=== PATIENT | female | born 1935 | race Asian ===

== ENCOUNTER 2021-04-03 23:07 | Inpatient (IN) | payer BC, SELFPAY ==
[~2021-04-03] VITALS: Ht 162.6 cm; Wt 50.8 kg
[2021-04-03 23:13] VITALS: BP_SYST 157
[2021-04-04] VITALS (7 sets, daily range): BP systolic 118–160
[2021-04-04 00:17] LABS: BASOPHILS % (AUTO) 0.4 % (0.0-2.0); EOSINOPHILS % (AUTO) 0.6 % (0.0-4.0); HEMATOCRIT 32.7 % (36-48); HEMOGLOBIN 11.1 g/dL (12.0-16.0); LYMPHOCYTES # (AUTO) 0.8 K/uL (1.0-5.5); LYMPHOCYTES % (AUTO) 10.4 % (20.5-51.5); MEAN CORPUSCULAR HEMOGLOBIN 31 pg (27-31); MEAN CORPUSCULAR HGB CONC 34 % (32-36); MEAN CORPUSCULAR VOLUME 91 fL (79.0-98.0); MONOCYTES # (AUTO) 0.5 K/uL (0.0-1.0); NEUTROPHILS # (AUTO) 6.3 K/uL (1.8-7.7); NEUTROPHILS % (AUTO) 82.6 % (40.0-70.0); PLATELET COUNT (AUTO) 268 K/uL (130-430); RED BLOOD CELL COUNT(AUTO) 3.58 MIL/uL (4.2-6.2); RED CELL DISTRIBUTION WIDTH 15.7 % (9.0-15.0); WHITE BLOOD COUNT (AUTO) 7.7 K/uL (4.8-10.8)
[2021-04-04 00:32] LABS: ANION GAP 7 (5-15); CALCIUM 8.2 mg/dL (8.4-11.0); CHLORIDE 87 mmol/L (98-107); CREATININE 0.86 mg/dL (0.55-1.30); GLUCOSE 163 mg/dL (70-99); POTASSIUM 4.3 mmol/L (3.5-5.1); SODIUM SERUM 123 mmol/L (136-145); UREA NITROGEN, BLOOD 19 mg/dL (8-21)
[2021-04-04 00:38] LABS: ALANINE AMINOTRANSFERASE 24 U/L (12-78); ASPARTATE AMINOTRANSFERASE 19 U/L (10-37); LIPASE 138 U/L (73-393); TOTAL BILIRUBIN 0.6 mg/dL (0.0-1.0)
[2021-04-04] MEDS ORDERED: NS 500 ML IV ONE (00:45)
[2021-04-04] MEDS ORDERED: ONDANSETRON HCL 4 MG/2 ML VIAL IVP ONE (00:45)
[2021-04-04] MEDS ORDERED: OXYC10TA56 PO (00:46)
[2021-04-04] MEDS ORDERED: HYDR12.55 PO (00:46)
[2021-04-04] MEDS ORDERED: FER300L PO (00:46)
[2021-04-04] MEDS ORDERED: ALLO300T2 PO (00:46)
[2021-04-04] MEDS ORDERED: NAPR-690 PO (00:46)
[2021-04-04] MEDS ORDERED: METF-518 PO (00:46)
[2021-04-04] MEDS ORDERED: ACET325T PO (00:46)
[2021-04-04] MEDS ORDERED: CLON-315 PO (00:46)
[2021-04-04] MEDS ORDERED: SIMV40TA2 PO (00:46)
[2021-04-04] MEDS ORDERED: SSREG SUBCUT (00:46)
[2021-04-04] MEDS ORDERED: FAMO20TA8 PO (00:46)
[2021-04-04] MEDS ORDERED: CLOP75TA32 PO (00:46)
[2021-04-04] MEDS ORDERED: DOCU-144 PO (00:46)
[2021-04-04] MEDS ORDERED: BISA-79 RC (00:46)
[2021-04-04] MEDS ORDERED: ONDA4TAB5 PO (00:46)
[2021-04-04] MEDS ORDERED: DIGO125T PO (00:46)
[2021-04-04] MEDS ORDERED: ISOS60TA71 PO (00:46)
[2021-04-04] MEDS ORDERED: FAMOTIDINE PF 20 MG/2 ML VIAL IVP ONE (03:45)
[2021-04-04 06:54] LABS: BASOPHILS # (AUTO) 0.1 K/uL (0.0-0.2); EOSINOPHILS # (AUTO) 0.1 K/uL (0.0-0.4); EOSINOPHILS % (AUTO) 1.7 % (0.0-4.0); HEMOGLOBIN 11.5 g/dL (12.0-16.0); LYMPHOCYTES # (AUTO) 1.1 K/uL (1.0-5.5); LYMPHOCYTES % (AUTO) 17.7 % (20.5-51.5); MEAN CORPUSCULAR HEMOGLOBIN 31 pg (27-31); MEAN CORPUSCULAR HGB CONC 34 % (32-36); MEAN CORPUSCULAR VOLUME 91 fL (79.0-98.0); MONOCYTES # (AUTO) 0.7 K/uL (0.0-1.0); MONOCYTES % (AUTO) 11.1 % (1.7-9.3); NEUTROPHILS # (AUTO) 4.4 K/uL (1.8-7.7); NEUTROPHILS % (AUTO) 68.5 % (40.0-70.0); PLATELET COUNT (AUTO) 252 K/uL (130-430); RED BLOOD CELL COUNT(AUTO) 3.73 MIL/uL (4.2-6.2); RED CELL DISTRIBUTION WIDTH 15.9 % (9.0-15.0); WHITE BLOOD COUNT (AUTO) 6.4 K/uL (4.8-10.8)
[2021-04-04] MEDS ORDERED: NACL 0.9% 1,000 ML IV SCH (07:00)
[2021-04-04] MEDS ORDERED: MORPHINE 2 MG/ML INJ. SYRINGE IVP PRN ×2 (07:00)
[2021-04-04 07:14] LABS: ANION GAP 6 (5-15); CALCIUM 8.8 mg/dL (8.4-11.0); CHLORIDE 93 mmol/L (98-107); CREATININE 0.69 mg/dL (0.55-1.30); GLUCOSE 108 mg/dL (70-99); SODIUM SERUM 128 mmol/L (136-145); UREA NITROGEN, BLOOD 18 mg/dL (8-21)
[2021-04-04 07:28] LABS: ALANINE AMINOTRANSFERASE 22 U/L (12-78); ASPARTATE AMINOTRANSFERASE 21 U/L (10-37); THYROID STIMULATING HORMONE 7.92 uIu/mL (0.36-3.74); TOTAL BILIRUBIN 0.7 mg/dL (0.0-1.0)
[2021-04-04 08:20] LABS: CHOLESTEROL 174 mg/dL (<200); HDL CHOLESTEROL 56 mg/dL (>55); LDL CHOLESTEROL 104 mg/dL (<100); TRIGLYCERIDES 152 mg/dL (30-150)
[2021-04-04] MEDS ORDERED: PANTOPRAZOLE SODIUM 40 MG/VIAL (PROTONIX) IVP ONE (10:45)
[2021-04-04] MEDS: NACL 0.9% 1,000 ML IV SCH ×3 (11:30→19:30)
[2021-04-04] MEDS: ONDANSETRON HCL 4 MG/2 ML VIAL IVP PRN ×2 (14:16→19:24)
[2021-04-04] MEDS ORDERED: BISACODYL 5 MG TABLET.DR (DULCOLAX) PO ONE (17:00)
[2021-04-04] MEDS ORDERED: GOLYTELY / COLYTE SOLUTION 4 LITERS PO ONE (18:00)
[2021-04-04] MEDS ORDERED: MAGNESIUM CITRATE 300 ML ORAL SOLUTION PO ONE (19:00)
[2021-04-05 01:24] VITALS: BP_SYST 156
[2021-04-05] MEDS: NACL 0.9% 1,000 ML IV SCH ×3 (05:51→21:29)
[2021-04-05 06:33] LABS: BASOPHILS % (AUTO) 0.8 % (0.0-2.0); EOSINOPHILS # (AUTO) 0.1 K/uL (0.0-0.4); EOSINOPHILS % (AUTO) 2.1 % (0.0-4.0); HEMATOCRIT 33.9 % (36-48); HEMOGLOBIN 11.3 g/dL (12.0-16.0); LYMPHOCYTES # (AUTO) 1.1 K/uL (1.0-5.5); LYMPHOCYTES % (AUTO) 20.5 % (20.5-51.5); MEAN CORPUSCULAR HEMOGLOBIN 31 pg (27-31); MEAN CORPUSCULAR HGB CONC 33 % (32-36); MEAN CORPUSCULAR VOLUME 92 fL (79.0-98.0); MONOCYTES # (AUTO) 0.7 K/uL (0.0-1.0); MONOCYTES % (AUTO) 12.2 % (1.7-9.3); NEUTROPHILS # (AUTO) 3.5 K/uL (1.8-7.7); NEUTROPHILS % (AUTO) 64.4 % (40.0-70.0); PLATELET COUNT (AUTO) 243 K/uL (130-430); RED BLOOD CELL COUNT(AUTO) 3.68 MIL/uL (4.2-6.2); RED CELL DISTRIBUTION WIDTH 16.3 % (9.0-15.0); WHITE BLOOD COUNT (AUTO) 5.5 K/uL (4.8-10.8)
[2021-04-05 06:40] LABS: ANION GAP 6 (5-15); CALCIUM 8.3 mg/dL (8.4-11.0); CHLORIDE 99 mmol/L (98-107); CREATININE 0.64 mg/dL (0.55-1.30); GLUCOSE 104 mg/dL (70-99); PHOSPHORUS 3.6 mg/dL (2.7-4.5); POTASSIUM 3.7 mmol/L (3.5-5.1); SODIUM SERUM 132 mmol/L (136-145); UREA NITROGEN, BLOOD 14 mg/dL (8-21)
[2021-04-05 07:40] LABS: PROTHROMBIN TIME 10.2 SECS (9.5-12.5)
[2021-04-05 08:23] VITALS: BP_SYST 147
[2021-04-05] MEDS: PANTOPRAZOLE SODIUM 40 MG/VIAL (PROTONIX) IVP SCH (08:46)
[2021-04-05 09:49] LABS: URIC ACID 3.1 mg/dL (2.4-7.0)
[2021-04-05] MEDS: MIDAZOLAM HCL 5 MG/5 ML VIAL ONE ×4 (10:05→10:21)
[2021-04-05] MEDS: MEPERIDINE 100 MG INJ. 100 MG/ML VIAL ONE ×3 (10:05→10:19)
[2021-04-05 12:44] VITALS: BP_SYST 129
[2021-04-05 16:00] VITALS: BP_SYST 139
[2021-04-05] MEDS ORDERED: ACETAMINOPHEN 325 MG TABLET PO PRN (17:00)
[2021-04-05 20:45] VITALS: BP_SYST 135
[2021-04-05] MEDS ORDERED: SIMVASTATIN 40 MG TABLET PO SCH (21:00)
[2021-04-05] MEDS: DOCUSATE SODIUM 100 MG CAPSULE PO SCH (21:16)
[2021-04-05] MEDS: FAMOTIDINE 20 MG TABLET PO SCH (21:16)
[2021-04-05] MEDS: HYDROCHLOROTHIAZIDE 12.5 MG CAPSULE (HCTZ) PO SCH (21:20)
[2021-04-06 01:48] VITALS: BP_SYST 143
[2021-04-06] MEDS: NACL 0.9% 1,000 ML IV SCH (03:30)
[2021-04-06 06:21] LABS: BASOPHILS % (AUTO) 0.8 % (0.0-2.0); EOSINOPHILS # (AUTO) 0.1 K/uL (0.0-0.4); EOSINOPHILS % (AUTO) 2.8 % (0.0-4.0); HEMOGLOBIN 10.5 g/dL (12.0-16.0); LYMPHOCYTES % (AUTO) 18.9 % (20.5-51.5); MEAN CORPUSCULAR HEMOGLOBIN 31 pg (27-31); MEAN CORPUSCULAR HGB CONC 33 % (32-36); MEAN CORPUSCULAR VOLUME 93 fL (79.0-98.0); MONOCYTES # (AUTO) 0.5 K/uL (0.0-1.0); MONOCYTES % (AUTO) 10.3 % (1.7-9.3); NEUTROPHILS # (AUTO) 3.5 K/uL (1.8-7.7); NEUTROPHILS % (AUTO) 67.2 % (40.0-70.0); PLATELET COUNT (AUTO) 221 K/uL (130-430); RED BLOOD CELL COUNT(AUTO) 3.43 MIL/uL (4.2-6.2); RED CELL DISTRIBUTION WIDTH 16.9 % (9.0-15.0); WHITE BLOOD COUNT (AUTO) 5.3 K/uL (4.8-10.8)
[2021-04-06 06:45] LABS: ALANINE AMINOTRANSFERASE 27 U/L (12-78); ALBUMIN 2.6 g/dL (3.4-4.8); ANION GAP 6 (5-15); ASPARTATE AMINOTRANSFERASE 22 U/L (10-37); CALCIUM 8.1 mg/dL (8.4-11.0); CHLORIDE 101 mmol/L (98-107); CREATININE 0.61 mg/dL (0.55-1.30); GLUCOSE 99 mg/dL (70-99); LIPASE 192 U/L (73-393); POTASSIUM 3.7 mmol/L (3.5-5.1); SODIUM SERUM 135 mmol/L (136-145); TOTAL BILIRUBIN 0.7 mg/dL (0.0-1.0); UREA NITROGEN, BLOOD 12 mg/dL (8-21)
[2021-04-06] MEDS ORDERED: DIGOXIN 0.125 MG TABLET PO SCH (09:00)
[2021-04-06] MEDS ORDERED: CLOPIDOGREL BISULFATE 75 MG TABLET PO SCH (09:00)
[2021-04-06] MEDS ORDERED: ALLOPURINOL 300 MG TABLET (ZYLOPRIM) PO SCH (09:00)
[2021-04-06 09:15] VITALS: BP_SYST 157
[2021-04-06] MEDS: DOCUSATE SODIUM 100 MG CAPSULE PO SCH (09:16)
[2021-04-06] MEDS: FAMOTIDINE 20 MG TABLET PO SCH (09:16)
[2021-04-06] MEDS: HYDROCHLOROTHIAZIDE 12.5 MG CAPSULE (HCTZ) PO SCH (09:21)
[2021-04-06] MEDS: PANTOPRAZOLE SODIUM 40 MG/VIAL (PROTONIX) IVP SCH (09:21)
[2021-04-06 11:21] VITALS: BP_SYST 157
[2021-04-06 12:34] VITALS: BP_SYST 130
[2021-04-06 12:50] VITALS: BP_SYST 170
[2021-04-06] MEDS ORDERED: hydrALAZINE HCL 20 MG/ML VIAL IVP ONE (13:00)
== END 2021-04-06 13:55 | DRG 241 ==
LOC: SED 23:07 → STU 04-04 03:27
PROVIDERS: ADMIT Internal Medicine; ATTEND Internal Medicine
PROC: 0DJD8ZZ Inspection of Lower Intestinal Tract, Via Natural or Artificial Opening Endoscopic (ICD-10-PCS; 2021-04-05)
PROC: 0DB98ZX Excision of Duodenum, Via Natural or Artificial Opening Endoscopic, Diagnostic (ICD-10-PCS; principal; 2021-04-05 10:00)
PROC: 0DB78ZX Excision of Stomach, Pylorus, Via Natural or Artificial Opening Endoscopic, Diagnostic (ICD-10-PCS; 2021-04-05 10:00)
DX: K29.70 Gastritis, unspecified, without bleeding (principal); E43 Unspecified severe protein-calorie malnutrition; I50.9 Heart failure, unspecified; I11.0 Hypertensive heart disease with heart failure; K52.9 Noninfective gastroenteritis and colitis, unspecified; E87.1 Hypo-osmolality and hyponatremia; E86.1 Hypovolemia; K64.8 Other hemorrhoids; E11.9 Type 2 diabetes mellitus without complications; E78.5 Hyperlipidemia, unspecified; I25.10 Atherosclerotic heart disease of native coronary artery without angina pectoris; Z20.822 Contact with and (suspected) exposure to COVID-19; I70.0 Atherosclerosis of aorta; X58.XXXA Exposure to other specified factors, initial encounter; K59.09 Other constipation; M10.9 Gout, unspecified; Z79.84 Long term (current) use of oral hypoglycemic drugs; Z79.899 Other long term (current) drug therapy; Y93.89 Activity, other specified; Y92.89 Other specified places as the place of occurrence of the external cause; Y99.8 Other external cause status; Z83.3 Family history of diabetes mellitus; Z82.49 Family history of ischemic heart disease and other diseases of the circulatory system; Z90.49 Acquired absence of other specified parts of digestive tract; Z79.02 Long term (current) use of antithrombotics/antiplatelets; Z68.1 Body mass index [BMI] 19.9 or less, adult
CPT/HCPCS: 36415; 43239; 45378; 76376; 80048; 80053; 80061; 82962; 83036; 83605; 83690; 83735; 83930; 84100; 84443; 84484; 84550; 85025; 85610-TC; 85730-TC; 87081; 88305; 88312; 88313; 93005; 96361; 96374; 96375; 99285; C9113; G0378; J0360; J2175; J2250; J2405; J3490